=== PATIENT | male | born 1990 | race Caucasian/White ===

== ENCOUNTER 2018-06-22 03:01 | Emergency (ER) | payer SELFPAY ==
[~2018-06-22] VITALS: Ht 167.6 cm; Wt 61.7 kg
[2018-06-22 03:15] VITALS: Ht 167.6 cm; Wt 61.7 kg
[2018-06-22 07:45] VITALS: BP 123/74
== END 2018-06-22 07:45 | disposition home or self-care (01) ==
LOC: ED 03:01
DX: L05.91 Pilonidal cyst without abscess (principal); J45.909 Unspecified asthma, uncomplicated
CPT/HCPCS: 90658